=== PATIENT | male | born 1990 | race Caucasian/White ===

== ENCOUNTER 2020-09-19 03:17 | Emergency (ER) | payer BC ==
[2020-09-19] MEDS ORDERED: Albuterol/Ipratropium 3.0-0.5 MG/3 ML Neb Soln NEB ONE (03:50)
[2020-09-19] MEDS ORDERED: predniSONE 20 MG Tab PO STA (03:51)
--- NOTE | 2020-09-19 04:01 | EDM.PDOC ---
ED HPI GENERAL MEDICAL PROBLEM - General Chief Complaint: Respiratory Problem Stated Complaint: TROUBLE BREATHING Time Seen by Provider: 09/19/20 03:28 Source of Information: Reports: Patient, Family ( + daughter) History Limitations: Reports: No Limitations - History of Present Illness INITIAL COMMENTS - FREE TEXT/NARRATIVE: Mr. Lee is a very pleasant 30-year-old gentleman who now presents the ED stating that he developed dyspnea and a nonproductive cough with some wheezing around 23:00 this evening. He states that sometimes the coughing becomes so severe that he vomits. He states that he has a history of asthma, and that he used his albuterol MDI more than 60 times since 23:00, without significant improvement in his symptoms. No recent fever or chills. No recent chest pain or palpitations. The patient states that he has had asthma all his life. He states that he has never seen a [employer] or undergone pulmonary function tests. He does not own a space chamber or peak flow meter. He states that he takes Advair twice a day, as prescribed, and rarely gets asthma exacerbations, with the most recent one about 2 months ago. Here in the ED, the patient's initial BP is found to be elevated at 165/75, otherwise, he is hemodynamically stable, afebrile, saturating 95% on room air. He appears to be relatively comfortable, able to hold a conversation, in no acute distress. Prior to tonight, the patient denies having a recent fever, chills, sore throat, ear pain, nasal or sinus congestion, cough, dyspnea, chest pain, palpitations, nausea, vomiting, constipation, diarrhea, abdominal pain, urinary symptoms, recent weight gain or weight loss, recent bloody bowel movements or black bowel movements, recent joint aches, headaches, or rashes. The patient's PCP is Beth Blake NP. - Related Data Allergies Allergy/AdvReac Type Severity Reaction Status Date / Time No Known Allergies Allergy Verified 09/19/20 03:24 Home Meds: Home Meds Albuterol [Ventolin HFA] 8 gm IH 09/19/20 [History] Fluticasone/Salmeterol [Advair 250-50] 09/19/20 [History] predniSONE [Prednisone] 2 tab PO QAM #8 tablet 09/19/20 [Rx] Past Medical History Respiratory History: Reports: Asthma (suspected since childhood, never tested) Dermatologic History: Reports: Eczema - Past Surgical History HEENT Surgical History: Reports: Tonsillectomy Musculoskeletal Surgical History: Reports: Other (See Below) (SI joint cystectomy) Social & Family History - Tobacco Use Tobacco Use Status *Q: Former Tobacco User Tobacco Use Within Last Twelve Months: Vaping (Nicotine) Years of Tobacco use: 12 Packs/Tins Daily: 1 Month/Year Tobacco Last Used: Quit Apr 2019 Tobacco Use Comment: Started smoking 2007 - Alcohol Use Alcohol Use History: No - Recreational Drug Use Recreational Drug Use: Yes Drug Use in Last 12 Months: No Recreational Drug Type: Reports: Heroin (last used 03/31/2012), Marijuana/Hashish (last used 03/31/2012), Methamphetamine (last used 03/31/2012), Other (see below) (Prescription opioids - last used 03/31/2012) - Living Situation & Occupation Living situation: Reports: , with Spouse, with Family (3 kids) Occupation: Employed ([employer]) ED ROS GENERAL - Review of Systems Review Of Systems: Comprehensive ROS is negative, except as noted in HPI. ED EXAM, GENERAL - Physical Exam Exam: See Below Exam Limited By: No Limitations General Appearance: Alert, WD/WN, No Apparent Distress Eye Exam: Bilateral Eye: EOMI, Normal Inspection Ears: Normal External Exam, Hearing Grossly Normal Nose: Normal Inspection Throat/Mouth: Normal Inspection, Normal Lips, Normal Voice, No Airway Compromise Head: Atraumatic, Normocephalic Neck: Normal Inspection, Full Range of Motion Respiratory/Chest: No Respiratory Distress, No Accessory Muscle Use, Decreased Breath Sounds, Wheezing (expiratory), Prolonged Expiration. No: Crackles, Rhonchi, Stridor Cardiovascular: Normal Peripheral Pulses, Regular Rate, Rhythm, No Edema, No Gallop, No JVD, No Murmur, No Rub Peripheral Pulses: 3+: Radial (L), Radial (R) GI/Abdominal: Normal Bowel Sounds, Soft, Non-Tender, No Organomegaly, No Distention, No Abnormal Bruit, No Mass Back Exam: Normal Inspection, Full Range of Motion, NT Extremities: Normal Inspection, Normal Range of Motion, No Pedal Edema, Normal Capillary Refill Neurological: Alert, Oriented, Normal Cognition, No Motor/Sensory Deficits Psychiatric: Normal Affect Skin Exam: Warm, Dry, Intact, Normal Color, No Rash Course - Vital Signs Last Recorded V/S: Last Vital Signs Temp 36.2 C 09/19/20 03:25 Pulse 82 09/19/20 03:25 Resp 20 09/19/20 03:25 BP 165/75 H 09/19/20 03:25 Pulse Ox 99 09/19/20 03:57 - Orders/Labs/Meds Meds: Medications Discontinued Medications Generic Name Dose Route Start Last Admin Trade Name Ramy PRN Reason Stop Dose Admin Albuterol/Ipratropium 3 ml 09/19/20 03:50 09/19/20 03:57 Albuterol/Ipratropium 3.0-0.5 Mg/3 Ml Neb Soln NEB 09/19/20 03:51 3 ml ONETIME ONE Administration Prednisone 60 mg 09/19/20 03:51 09/19/20 04:15 Prednisone 20 Mg Tab PO 09/19/20 03:52 60 mg ONETIME STA Administration - Re-Assessments/Exams Free Text/Narrative Re-Assessment/Exam: 09/19/20 03:51 As above, the patient developed dyspnea, some wheezing, and a nonproductive coug h around 23:00. His BP is mildly elevated, but he is not tachycardic. On auscultation of his lungs, he has somewhat diminished breath sounds with expiratory wheezing and a prolonged expiratory phase, consistent with an asthma exacerbation. The patient stated that he has taken more than 60 puffs of his albuterol MDI since 23:00, without any significant improvement in his symptoms. He does not h ave a spacer chamber, and when I asked him to carefully demonstrate how he takes his albuterol, he shook his MDI for about 1 second, then immediately put it in his mouth. From start to finish was approximately 2.5 seconds. Without shaking the MDI for about a minute, the only thing that is ejected from it is propellant, without medicine, but even if he did adequately shake the MDI, by sticking it directly into his mouth, about 98% of the medicine would simply coat his mouth. Doing it the way he is currently doing it, virtually none is getting into his lungs. This is likely why he has not had any improvement in his symptoms and why he is not tachycardic. I have ordered prednisone and a DuoNeb, and asked that the respiratory therapist also give the patient a peak flow meter and spacer chamber. 09/19/20 04:24 I reevaluated the patient. His lungs now sound completely normal, with no wheezing or prolonged expiratory phase. The respiratory therapist provided him with a spacer chamber and peak flow meter. I will discharge him home with a prescription for prednisone 40 mg daily for 4 days. He requested a note to be off work today. Departure - Departure Time of Disposition: 04:24 Disposition: Home, Self-Care 01 Condition: Good Clinical Impression: Asthma exacerbation - Discharge Information *PRESCRIPTION DRUG MONITORING PROGRAM REVIEWED*: Not Applicable *COPY OF PRESCRIPTION DRUG MONITORING REPORT IN PATIENT [place]: Not Applicable Prescriptions: predniSONE [Prednisone] 2 tab PO QAM #8 tablet Instructions: Asthma Attack Referrals: Beth Blake NP [Primary Care Provider] - Forms: ED Department Discharge, ED Return to Work/School Form Additional Instructions: You were seen in the emergency room after developing a cough with some wheezing and shortness of breath around 11:00 last night. Based on your history and physical examination, you were most likely suffering from an asthma exacerbation. Your symptoms essentially resolved following a single DuoNeb treatment in the ER. You were started on the steroid prednisone, and a prescription for prednisone was sent to the [facility] pharmacy, located just south and across the [address] from [facility]. Take 2 tablets (40 mg) of prednisone every morning, starting tomorrow morning, , 09/20/2020, as prescribed. You were provided a peak flow meter and space chamber. Get to know your peak flow meter, to learn how to use it properly. We recommend that you check your peak flow 2 or 3 times a week, even if you are feeling well. If you are feeling well but your peak flow is in the yellow or red zone, we recommend that you contact your doctor, as this indicates that you may develop an asthma exacerbation within the next couple of weeks. If you are feeling short of breath with wheezing +/-a cough, check your peak flow. If it is in the yellow or red zone, you may use as much albuterol as necessary to get yourself relief, however, if you require treatment more often than every 4 hours, you need to be seen by a doctor. If your peak flow is in the green zone, DO NOT take albuterol, as that indicates that your symptoms are due to something other than asthma. Whenever you take albuterol, make sure that you shake the MDI for a full minute, and always use your spacer chamber. A note to be off work today has been provided to you. If any other problems, please do not hesitate to return to the ER. Sepsis Event Note (ED) - Evaluation Sepsis Screening Result: No Definite Risk - Focused Exam Vital Signs: Vital Signs Temp Pulse Resp BP Pulse Ox Pulse Ox 09/19/20 03:57 99 09/19/20 03:25 36.2 C 82 20 165/75 H 95
== END 2020-09-19 04:56 | disposition home or self-care (01) ==
LOC: JD.ED 03:17
DX: J45.901 Unspecified asthma with (acute) exacerbation (principal); Z87.891 Personal history of nicotine dependence; Z79.899 Other long term (current) drug therapy
CPT/HCPCS: 94640; 99284; J7512; 99283; J7620-GY

== ENCOUNTER 2024-11-15 13:58 | Emergency (ER) | payer BC ==
[2024-11-15] MEDS ORDERED: Sodium Chloride 0.9% 10 ML Syringe FLUSH PRN (14:28)
[2024-11-15 15:04] LABS: BASOPHILS ABSOLUTE AUTO 0.1 K/mm3 (0.0-0.2); BASOPHILS PERCENT AUTO 0.9 % (0.0-1.0); EOSINOPHILS ABSOLUTE AUTO 1.1 K/mm3 (0.0-0.4); EOSINOPHILS PERCENT AUTO 11.5 % (0.0-6.0); IMMATURE GRAN ABSOLUTE AUTO 0.03 K/mm3 (0.00-0.05); IMMATURE GRAN PERCENT AUTO 0.3 % (0.0-0.4); LYMPHOCYTES ABSOLUTE AUTO 1.7 K/mm3 (1.0-4.8); LYMPHOCYTES PERCENT AUTO 19.0 % (24.0-44.0); MEAN PLATELET VOLUME 10.5 fl (9.4-12.4); MONOCYTES ABSOLUTE AUTO 0.9 K/mm3 (0.0-0.8); MONOCYTES PERCENT AUTO 9.4 % (0.0-8.0); NEUTROPHILS ABSOLUTE AUTO 5.4 K/mm3 (1.8-7.7); NEUTROPHILS PERCENT AUTO 58.9 % (41.0-71.0); NRBC ABSOLUTE 0.00 (0.00-0.02); NRBC PERCENT 0.0 % (0.0-0.2); PLATELET COUNT,PLT 273 K/mm3 (150-400); RED BLOOD CELL COUNT 5.31 M/mm3 (4.52-5.90); WHITE BLOOD CELL COUNT,WBC 9.12 K/mm3 (3.9-11.3)
[2024-11-15 15:21] LABS: A/G RATIO 1.0 (1-2); ALANINE AMINOTRANSFERASE,ALT 34.0 U/L (16-63); ASPARTATE AMNIOTRANSFERASE,AST 20.0 U/L (15-37); BILIRUBIN TOTAL 0.2 mg/dL (0.2-1.0); BLOOD UREA NITROGEN,BUN 20.0 mg/dL (7-18); CARBON DIOXIDE,CO2 28.0 mEq/L (21-32); CHLORIDE,CL 105.0 mEq/L (98-107); CREATININE 1.3 mg/dL (0.7-1.3); EST CRCL DRUG DOSING (CG) 76.27 mL/min; ESTIMATED GFR 75.0 mL/min (>60); GLUCOSE RANDOM 91.0 mg/dL (70-99); POTASSIUM,K 4.2 mEq/L (3.5-5.1); PROTEIN TOTAL,TP 7.4 g/dl (6.4-8.2); SODIUM,NA 142.0 mEq/L (136-145); TROPONIN I HIGH SENSITIVITY 5.0 pg/mL (<=76)
[2024-11-15] MEDS: Ketorolac 30 MG/ML SDV IVPUSH ONE (16:09)
== END 2024-11-15 16:20 | disposition home or self-care (01) ==
LOC: JD.ED 13:58
DX: R07.89 Other chest pain (principal); M54.2 Cervicalgia; J45.909 Unspecified asthma, uncomplicated; F17.200 Nicotine dependence, unspecified, uncomplicated; Z79.51 Long term (current) use of inhaled steroids; Z79.899 Other long term (current) drug therapy
CPT/HCPCS: 36415; 71045; 72125; 80053; 84484; 85025; 93005; 94640; 96374; 99285; A9270; J1885; J7620; 93010; 99283